=== PATIENT | female | born 1940 | race Caucasian/White ===

== ENCOUNTER 2025-01-27 11:00 | Day surgery (SDC) | payer MEDICARE, MEDICAID ==
[2025-01-27] VITALS (14 sets, daily range): BP systolic 113–152; BP diastolic 50–65; PULSE 79–96; RESP 12–18; TEMP 97.7; O2SAT 95–100
[~2025-01-27] VITALS: Ht 152.4 cm; Wt 68.0 kg
[~2025-01-27 11:00] MED LIST: MAGNESIUM PO; ringers solution, lacted 1,000 ML IV SCH
[2025-01-27] MEDS: ceFAZolin 2gm/dext,iso 50mL 50 ML IV ONE (11:25)
[2025-01-27] MEDS: INDOCYANINE GREEN 25 MG/10 ML VIAL IV ONE (11:55)
[2025-01-27 12:08] LABS: ISTAT ANION GAP 13.0 (8-12); ISTAT BUN 22.0 mg/dL (7-18); ISTAT CL 109.0 mmol/L (99-107); ISTAT CREATININE 1.1 mg/dL (0.6-1.1); ISTAT GLUCOSE 107.0 mg/dL (70-104); ISTAT HGB 15.3 g/dl (12.0-16.0); ISTAT Hct 45.0 %PCV (35-45); ISTAT IONIZED CALCIUM 1.25 mmol/L (1.03-1.32); ISTAT K 3.8 mmol/L (3.5-5.1); ISTAT NA 143.0 mmol/L (135-145); ISTAT TOTAL CO2 21.0 mmol/L (24-32); ISTAT eGFR 47.0 ML/MIN; POC BUN/CREATININE RATIO 20.0 (6.6-38.0)
[2025-01-27 12:13] LABS: MEAN PLATELET VOLUME 8.1 FL (7.4-10.4); PRE OP HEMATOCRIT 42.1 % (35.0-45.0); PRE OP HEMOGLOBIN 14.6 g/dL (12.0-16.0); PRE OP PLATELET COUNT 116 X10'3 (140-440); PRE OP WHITE BLOOD COUNT 3.3 10'3 (4.8-10.8); RED CELL DISTRIBUTION WIDTH 14.6 % (11.5-14.5)
[2025-01-27] MEDS ORDERED: BUPIVAcaine 2.5mg/ml inj 50ml vial (contains preservative) ONE (12:16)
[2025-01-27] MEDS ORDERED: LIDOcaine 1% 30ml preserv. free vial ONE (12:16)
[2025-01-27 12:23] LABS: CREATININE 1.09 MG/DL (0.40-0.90); PRE OP ALT 31 U/L (30-65); PRE OP ANION GAP 10 (8-16); PRE OP AST 43 U/L (10-37); PRE OP GLUCOSE 107 MG/DL (70-104); PRE OP POTASSIUM 3.8 MMOL/L (3.4-5.1); PRE OP SODIUM 144 MMOL/L (135-145); TOTAL CARBON DIOXIDE 23.8 MMOL/L (24-32); eCRCL 27 ML/MIN; eGFR 48 ML/MIN
[2025-01-27 12:36] LABS: PRE OP BILIRUB, TOTAL 3.9 MG/DL (0.0-1.0)
[2025-01-27] MEDS ORDERED: desflurane 240ml liquid inh. IH ONE (13:00)
[2025-01-27] MEDS ORDERED: dexamethasone sod phosphate 4mg/ml inj. ONE (13:00)
[2025-01-27] MEDS ORDERED: labetalol 20mg/4ml (5mg/ml) syringe IV PRN (13:10)
[2025-01-27] MEDS ORDERED: fentaNYL/PF 50MCG/1 ML 2ML syringe IV PRN ×2 (13:10)
[2025-01-27] MEDS ORDERED: HYDROmorphone/PF 0.2 MG/ML SYRINGE IV PRN ×2 (13:10)
[2025-01-27] MEDS ORDERED: hydrALAZINE 20mg/ml inj. IV PRN (13:10)
[2025-01-27] MEDS ORDERED: ringers solution, lacted 1,000 ML IV SCH (13:10)
[2025-01-27] MEDS ORDERED: fentaNYL/PF 50MCG/1 ML 2ML syringe ONE (13:22)
[2025-01-27] MEDS ORDERED: rocuronium 10mg/ml inj IV ONE (13:23)
[2025-01-27] MEDS ORDERED: propofol inj 20 ML IV ONE (13:23)
[2025-01-27] MEDS ORDERED: LIDOcaine 1%/PF 5ML 10 MG/ML VIAL ONE (13:23)
[2025-01-27] MEDS ORDERED: ondansetron/PF 4mg/2ml inj ONE (13:24)
[2025-01-27] MEDS ORDERED: glycopyrrolate 0.2mg/ml inj ONE (13:27)
[2025-01-27] MEDS: BUPIVAcaine/PF 2.5 mg/ml (0.25%) 30ml vial IJ ONE (13:35)
[2025-01-27] MEDS: LIDOcaine 1% 30ml preserv. free vial IJ ONE (13:35)
--- NOTE | 2025-01-27 14:47 | OPERATIVE REPORT ---
Operative Report Providers to CC CC: DAMION DUMAS MD ~ Date of Procedure: Jan 27, 2025 Pre-Operative Diagnosis: Gallstone Pancreatitis Post-Operative Diagnosis SAME as PRE-Op Procedure Performed Robotic assisted laparoscopic cholecystectomy Surgeon: Damion Dumas MD Floorworker Lasting None Anesthesiologist: Calos Roman Type of Anesthesia: General Findings: Cirrhosis Critical view of safety obtained Wound class III Complications None Prosthetics\Implants used: N/A Estimated Blood Loss: 10 cc Specimen Removed: Gallbladder Description of Procedure: Patient was brought to the operating room and identified by the nursing staff and the attending physician. Patient was placed supine and general anesthesia was induced. A supraumbilical, midline incision was made, long enough to accommodate a 12 mm Garcia port. Garcia technique was used to gain entry into the abdomen. Stay sutures were placed in the Garcia port anchored to the fascia. Abdomen was insufflated without incident. Laparoscope was inserted and the abdomen surveyed. Secondary, 8.5 mm robotic trochars were placed in the left upper quadrant and right lateral abdomen. Robotic arm was docked to the patient. Robotic instruments were guided intra- abdominally under laparoscopic visualization. Liver had findings consistent with cirrhosis. Gallbladder was readily identified. Fundus of the gallbladder was grasped and retracted over the dome of the liver. Infundibulum was retracted towards the right lower quadrant. Firefly technology was used to obtain a fluorescent cholangiogram and visualize the pertinent anatomy. Cystic duct was clearly visualized. Peritoneum overlying the triangle was incised with hook electrocautery. This allowed for circumferential dissection of the cystic duct and artery. Critical view of safety was obtained. Duct and artery were then clipped with hemo-lock clips and both structures divided. Gallbladder was retracted laterally and dissected out of the gallbladder fossa.Small amount of bleeding from friable liver bed occurred with retraction. Rent in gallbladder wall led to some bile spillage, but no stones noted. Gallbladder was set aside and fluorescent cholangiogram of the gallbladder fossa was used to confirm no evidence of bile leak. Gallbladder was placed in a laparoscopic retrieval bag. Secondary trochars were removed and the abdomen allowed to deflate. Garcia port was removed with the specimen in its retrieval bag. Fascia at the umbilical port site was closed with 0 Vicryl sutures. Skin was closed with skin robert. About 50 cc of local anesthetic was used during the case. Sterile dressings were applied. Patient was awakened and taken to the postanesthesia care unit in stable condition. Counts repoted as correct: Yes DAMION DUMAS MD Jan 27, 2025 14:47
[2025-01-27] MEDS: ondansetron/PF 4mg/2ml inj IV PRN (16:01)
== END 2025-01-27 16:17 | disposition home or self-care (01) ==
LOC: PAS 11:00
PROVIDERS: ATTEND Surgery
DX: K85.10 Biliary acute pancreatitis without necrosis or infection (principal); K21.9 Gastro-esophageal reflux disease without esophagitis; Z79.899 Other long term (current) drug therapy; Z98.890 Other specified postprocedural states; Z88.5 Allergy status to narcotic agent
CPT/HCPCS: 36415; 47563; 80047; 80053; 85025; 88304; A4215; A4618; A7000; J1100; J2003; J2405; J2704; J3010; J3490; J7030; J7120; Z7506; Z7508; Z7512; Z7610